=== PATIENT | male | born 1940 | race Two or more races ===

== ENCOUNTER 2022-01-06 17:24 | Inpatient (IN) | payer OTHER ==
[~2022-01-06] VITALS: Ht 172.7 cm; Wt 84.5 kg
[2022-01-06] MEDS ORDERED: IPRATROPIUM BROM 0.5 MG/2.5ML INH SOL HHN ONE (17:45)
[2022-01-06] MEDS ORDERED: ALBUTEROL SULF 2.5 MG/0.5ML(0.5%) NEB SOLN HHN ONE (17:45)
[2022-01-06] MEDS ORDERED: methylPREDNISolone SOD SUCC 125 MG/2 ML VL IV ONE (17:45)
[2022-01-06] MEDS ORDERED: ONDANSETRON HCL 4 MG/2 ML VIAL IV ONE (18:45)
[2022-01-06 19:23] LABS: Hematocrit 38.2 % (41.0-53.0); Mean Corpuscular Hgb Conc. 31.4 g/dL (32.0-36.0); Mean Corpuscular Volume 92.2 fL (80.0-100.0); Red Blood Cells 4.15 10^6/uL (4.5-5.90); Red Cell Distribution Width 15.1 % (11.8-14.3); White Blood Cell 12.7 10^3/uL (4.4-10.8)
[2022-01-06 19:41] LABS: Basophils % (manual) 0 (0.0-2.0); Blast Cells 0; Metamyelocytes % 0; Myelocytes % 0; Promyelocytes % 0; Reactive Lymphocytes 0
[2022-01-06 19:44] LABS: CRP High Sensitivity 0.77 mg/dL (< 0.3); Calcium 8.4 mg/dL (8.5-10.1); Potassium 4.6 mmol/L (3.5-5.1)
[2022-01-06 19:47] LABS: BUN/Creatinine Ratio 16.9; Bilirubin, Total 0.5 mg/dL (0.2-1.0); Total Protein 7.6 g/dL (6.4-8.2)
[2022-01-06 20:04] LABS: Band Neutrophils % (manual) 1; Eosinophils % (manual) 1 (0-7); Lymphocytes % (manual) 42 (10.0-50.0); Monocytes % (manual) 7 (0-12)
[2022-01-06] MEDS ORDERED: SODIUM CHLORIDE 0.9% 1,000 ML IV ONE (20:15)
[2022-01-06] MEDS ORDERED: IOHEXOL 350 MG/ML 100ML IJ ONE (21:15)
[2022-01-06] MEDS ORDERED: ACETAMINOPHEN 325 MG TAB PO PRN (22:15)
[2022-01-06] MEDS ORDERED: IPRATROPIUM BROM 0.5 MG/2.5ML INH SOL NEB PRN (22:15)
[2022-01-06] MEDS ORDERED: AZITHROMYCIN 500MG/ 250ML 250 ML IV ONE (22:15)
[2022-01-06] MEDS ORDERED: ALBUTEROL SULF 2.5 MG/0.5ML(0.5%) NEB SOLN NEB PRN (22:15)
[2022-01-06] MEDS ORDERED: MORPHINE SULFATE INJ 2 MG/ml SYRG IV PRN (22:15)
[2022-01-06] MEDS ORDERED: TEMAZEPAM 15 MG CAP PO PRN (22:15)
[2022-01-06] MEDS ORDERED: DEXTROSE (50%) 50ML SYRG IV PRN (22:15)
[2022-01-06] MEDS ORDERED: NITROGLYCERIN 0.4 MG SL TAB SL PRN (22:15)
[2022-01-06 22:46] VITALS: BP 94/43
[2022-01-07 06:25] LABS: Hematocrit 37.7 % (41.0-53.0); Hemoglobin 12.1 g/dL (13.5-17.5); Mean Corpuscular Hemoglobin 29.7 pg (28.0-32.0); Mean Corpuscular Hgb Conc. 32.2 g/dL (32.0-36.0); Mean Corpuscular Volume 92.3 fL (80.0-100.0); Red Blood Cells 4.09 10^6/uL (4.5-5.90); Red Cell Distribution Width 15.2 % (11.8-14.3); White Blood Cell 11.2 10^3/uL (4.4-10.8)
[2022-01-07 06:35] LABS: Potassium 5.3 mmol/L (3.5-5.1)
[2022-01-07 06:46] LABS: Albumin 2.8 g/dL (3.4-5.0); BUN/Creatinine Ratio 17.5; Bilirubin, Total 0.4 mg/dL (0.2-1.0); Calcium 8.5 mg/dL (8.5-10.1); Total Protein 7.2 g/dL (6.4-8.2)
[2022-01-07] MEDS: ACCU-CHEK COMFORT CURVE STRIP VI SCH ×4 (06:49→22:32)
[2022-01-07] MEDS: InsuLIN REG 1unit/0.01ml Soln (100units/ml) SC SCH ×4 (06:59→22:34)
[2022-01-07 07:19] LABS: Band Neutrophils % (manual) 0; Basophils % (manual) 0 (0.0-2.0); Blast Cells 0; Eosinophils % (manual) 0 (0-7); Metamyelocytes % 0; Myelocytes % 0; Promyelocytes % 0; Reactive Lymphocytes 0
[2022-01-07 09:18] LABS: Lymphocytes % (manual) 47 (10.0-50.0); Monocytes % (manual) 1 (0-12)
[2022-01-07] MEDS ORDERED: PANTOPRAZOLE 40 MG TAB PO SCH (10:00)
[2022-01-07] MEDS: AZITHROMYCIN 500MG/ 250ML 250 ML IV SCH (10:15)
[2022-01-07] MEDS: CARVEDILOL 3.125 MG TAB PO SCH ×2 (10:16→22:33)
[2022-01-07] MEDS: ENOXAPARIN SOD 40 MG/0.4 ML SYRINGE SC SCH (10:16)
[2022-01-07] MEDS: LISINOPRIL 5 MG TAB PO SCH (10:17)
[2022-01-07] MEDS ORDERED: FUROSEMIDE 20 MG/2 ML VIAL IV ONE (16:45)
[2022-01-07] MEDS ORDERED: REMDESIVIR PER PHARMACY 0 ML IV SCH (16:45)
[2022-01-07] MEDS: PIPERACILLIN-TAZOB 2.25GM 50 ML IV SCH (17:16)
[2022-01-07] MEDS ORDERED: REMDESIVIR 200 MG in NS 210ml LOADING DOSE ADULT IV ONE (17:30)
[2022-01-07 20:00] VITALS: BP 130/60
[2022-01-07 22:00] VITALS: BP 130/60
[2022-01-07] MEDS: ATORVASTATIN 20 MG TAB PO SCH (22:32)
[2022-01-08] MEDS ORDERED: guaiFENesin-DM 100/10mg/5ml SYR PO PRN (00:30)
[2022-01-08] MEDS: PIPERACILLIN-TAZOB 2.25GM 50 ML IV SCH ×5 (00:56→23:38)
[2022-01-08 05:00] VITALS: BP 110/56
[2022-01-08] MEDS: InsuLIN REG 1unit/0.01ml Soln (100units/ml) SC SCH ×4 (06:23→22:22)
[2022-01-08] MEDS: ACCU-CHEK COMFORT CURVE STRIP VI SCH ×4 (06:23→22:09)
[2022-01-08 07:05] LABS: Albumin 2.7 g/dL (3.4-5.0); Calcium 8.2 mg/dL (8.5-10.1); Potassium 4.9 mmol/L (3.5-5.1)
[2022-01-08 07:10] LABS: BUN/Creatinine Ratio 24.7; Bilirubin, Total 0.5 mg/dL (0.2-1.0); Total Protein 6.5 g/dL (6.4-8.2)
[2022-01-08 08:00] VITALS: BP 109/67
[2022-01-08] MEDS: DexAMETHasone SOD PHOS 10MG/1ML VIAL INJ IV SCH ×2 (10:00→11:43)
[2022-01-08] MEDS: AZITHROMYCIN 500MG/ 250ML 250 ML IV SCH (11:43)
[2022-01-08] MEDS: ENOXAPARIN SOD 40 MG/0.4 ML SYRINGE SC SCH (11:44)
[2022-01-08] MEDS: FUROSEMIDE 20 MG/2 ML VIAL IV SCH (12:12)
[2022-01-08] MEDS: LISINOPRIL 5 MG TAB PO SCH (12:13)
[2022-01-08] MEDS: CARVEDILOL 3.125 MG TAB PO SCH ×2 (12:13→22:08)
[2022-01-08 13:00] VITALS: BP 100/70
[2022-01-08] MEDS: ONDANSETRON HCL 4 MG/2 ML VIAL IV PRN (14:36)
[2022-01-08] MEDS ORDERED: REMDESIVIR 100mg 100 MG in SODIUM CHL 0.9% 230 ML IV SCH (15:00)
[2022-01-08 16:47] VITALS: BP 127/64
[2022-01-08 20:00] VITALS: BP 106/59
[2022-01-08 22:00] VITALS: BP 106/59
[2022-01-08] MEDS: ATORVASTATIN 20 MG TAB PO SCH (22:08)
[2022-01-09 05:00] VITALS: BP 96/48
[2022-01-09] MEDS: ONDANSETRON HCL 4 MG/2 ML VIAL IV PRN (05:17)
[2022-01-09] MEDS: ACCU-CHEK COMFORT CURVE STRIP VI SCH ×4 (05:43→22:27)
[2022-01-09] MEDS: PIPERACILLIN-TAZOB 2.25GM 50 ML IV SCH ×3 (05:43→17:47)
[2022-01-09 06:03] LABS: Mean Corpuscular Hemoglobin 29.6 pg (28.0-32.0); Mean Corpuscular Hgb Conc. 32.3 g/dL (32.0-36.0); Mean Corpuscular Volume 91.4 fL (80.0-100.0); Red Blood Cells 4.04 10^6/uL (4.5-5.90); Red Cell Distribution Width 15.4 % (11.8-14.3); White Blood Cell 13.5 10^3/uL (4.4-10.8)
[2022-01-09 06:13] LABS: Basophils % (manual) 0 (0.0-2.0); Blast Cells 0; Metamyelocytes % 0; Myelocytes % 0; Promyelocytes % 0; Reactive Lymphocytes 0
[2022-01-09 07:13] LABS: Band Neutrophils % (manual) 10; Eosinophils % (manual) 2 (0-7); Lymphocytes % (manual) 48 (10.0-50.0); Monocytes % (manual) 11 (0-12)
[2022-01-09] MEDS: InsuLIN REG 1unit/0.01ml Soln (100units/ml) SC SCH ×4 (07:27→22:46)
[2022-01-09 07:45] VITALS: BP 109/64
[2022-01-09 08:00] VITALS: BP 101/51
[2022-01-09] MEDS: ENOXAPARIN SOD 40 MG/0.4 ML SYRINGE SC SCH (10:52)
[2022-01-09] MEDS: CARVEDILOL 3.125 MG TAB PO SCH ×2 (10:53→22:26)
[2022-01-09] MEDS: FUROSEMIDE 20 MG/2 ML VIAL IV SCH (10:54)
[2022-01-09] MEDS: LISINOPRIL 5 MG TAB PO SCH (10:54)
[2022-01-09] MEDS ORDERED: predniSONE 20 MG TAB PO ONE (11:15)
[2022-01-09 12:07] LABS: Hematocrit 37.4 % (41.0-53.0); Hemoglobin 11.9 g/dL (13.5-17.5); Mean Corpuscular Hemoglobin 29.1 pg (28.0-32.0); Mean Corpuscular Hgb Conc. 31.9 g/dL (32.0-36.0); Mean Corpuscular Volume 91.4 fL (80.0-100.0); Red Blood Cells 4.09 10^6/uL (4.5-5.90); Red Cell Distribution Width 15.3 % (11.8-14.3); White Blood Cell 13.7 10^3/uL (4.4-10.8)
[2022-01-09 12:25] LABS: Basophils % (manual) 0 (0.0-2.0); Blast Cells 0; Eosinophils % (manual) 0 (0-7); Myelocytes % 0; Promyelocytes % 0
[2022-01-09 12:43] LABS: BUN/Creatinine Ratio 23.3; Calcium 8.1 mg/dL (8.5-10.1); Potassium 4.8 mmol/L (3.5-5.1)
[2022-01-09 12:46] LABS: Band Neutrophils % (manual) 8; Lymphocytes % (manual) 49 (10.0-50.0); Metamyelocytes % 1; Monocytes % (manual) 6 (0-12); Reactive Lymphocytes 3
[2022-01-09 13:00] VITALS: BP 109/64
[2022-01-09] MEDS: REMDESIVIR 100mg 100 MG in SODIUM CHL 0.9% 230 ML IV SCH (16:12)
[2022-01-09] MEDS ORDERED: CEFP200T15 PO (17:19)
[2022-01-09] MEDS ORDERED: LISI-275 PO (17:19)
[2022-01-09] MEDS ORDERED: GAB100C PO (17:19)
[2022-01-09] MEDS ORDERED: AZIT250T9 PO (17:19)
[2022-01-09] MEDS ORDERED: ALBU0.084 NEB (17:19)
[2022-01-09] MEDS ORDERED: CARV3.1240 PO (17:19)
[2022-01-09 17:23] VITALS: BP 122/57
[2022-01-09 20:00] VITALS: BP 123/62
[2022-01-09] MEDS: ATORVASTATIN 20 MG TAB PO SCH (22:27)
[2022-01-10] VITALS (8 sets, daily range): BP systolic 91–142; BP diastolic 41–62
[2022-01-10] MEDS: PIPERACILLIN-TAZOB 2.25GM 50 ML IV SCH ×4 (01:22→17:42)
[2022-01-10 05:01] LABS: Hematocrit 36.2 % (41.0-53.0); Hemoglobin 11.8 g/dL (13.5-17.5); Mean Corpuscular Hemoglobin 29.4 pg (28.0-32.0); Mean Corpuscular Hgb Conc. 32.6 g/dL (32.0-36.0); Mean Corpuscular Volume 90.2 fL (80.0-100.0); Red Blood Cells 4.01 10^6/uL (4.5-5.90); White Blood Cell 15.3 10^3/uL (4.4-10.8)
[2022-01-10 05:32] LABS: Potassium 4.8 mmol/L (3.5-5.1)
[2022-01-10 05:38] LABS: Calcium 8.1 mg/dL (8.5-10.1)
[2022-01-10 05:40] LABS: Basophils % (manual) 0 (0.0-2.0); Blast Cells 0; Eosinophils % (manual) 0 (0-7); Metamyelocytes % 0; Myelocytes % 0; Promyelocytes % 0
[2022-01-10] MEDS: ACCU-CHEK COMFORT CURVE STRIP VI SCH ×3 (06:40→17:43)
[2022-01-10] MEDS: InsuLIN REG 1unit/0.01ml Soln (100units/ml) SC SCH ×3 (06:46→17:49)
[2022-01-10 07:20] LABS: Band Neutrophils % (manual) 11; Lymphocytes % (manual) 39 (10.0-50.0); Monocytes % (manual) 9 (0-12); Reactive Lymphocytes 7
[2022-01-10] MEDS ORDERED: predniSONE 20 MG TAB PO SCH (10:00)
[2022-01-10] MEDS: ENOXAPARIN SOD 40 MG/0.4 ML SYRINGE SC SCH (10:18)
[2022-01-10] MEDS: LISINOPRIL 5 MG TAB PO SCH (10:18)
[2022-01-10] MEDS: CARVEDILOL 3.125 MG TAB PO SCH (10:18)
[2022-01-10] MEDS: REMDESIVIR 100mg 100 MG in SODIUM CHL 0.9% 230 ML IV SCH (16:40)
== END 2022-01-10 21:06 | disposition short-term general hospital (02) | DRG 871 ==
LOC: EDBD 17:24 → ER 17:24 → TELE 22:09 → TELE-WESTW 01-07 15:09
PROVIDERS: ADMIT Nurse Practitioner; ATTEND Internal Medicine Nephrology
PROC: XW033E5 Introduction of Remdesivir Anti-infective into Peripheral Vein, Percutaneous Approach, New Technology Group 5 (ICD-10-PCS; principal; 2022-01-07)
DX: A41.89 Other specified sepsis (principal); J12.82 Pneumonia due to coronavirus disease 2019; U07.1 COVID-19; J96.21 Acute and chronic respiratory failure with hypoxia; J90 Pleural effusion, not elsewhere classified; C34.90 Malignant neoplasm of unspecified part of unspecified bronchus or lung; N17.9 Acute kidney failure, unspecified; R65.20 Severe sepsis without septic shock; E66.9 Obesity, unspecified; Z68.28 Body mass index [BMI] 28.0-28.9, adult; R79.89 Other specified abnormal findings of blood chemistry; Z20.822 Contact with and (suspected) exposure to COVID-19; D69.6 Thrombocytopenia, unspecified; E11.22 Type 2 diabetes mellitus with diabetic chronic kidney disease; E87.5 Hyperkalemia; N18.32 Chronic kidney disease, stage 3b; Z85.118 Personal history of other malignant neoplasm of bronchus and lung; Z87.891 Personal history of nicotine dependence; Z95.1 Presence of aortocoronary bypass graft
CPT/HCPCS: 36415; 36600; 71045; 71275; 76604; 80048; 80053; 82728; 82805; 82962; 83605; 83880; 84484; 85007; 85027; 85379; 86141; 87040; 94640; 96361; 96365; 96366; 96372; 96375; G0378; J1100; J1815; J2405; J2543

== ENCOUNTER 2022-04-20 09:31 | Inpatient (IN) | payer OTHER ==
[~2022-04-20] VITALS: Ht 177.8 cm; Wt 82.9 kg
[~2022-04-20 09:31] MED LIST: ALBU0.084 NEB; AZIT250T9 PO; CARV3.1240 PO; CEFP200T15 PO; GAB100C PO; LISI-275 PO
[2022-04-20] MEDS ORDERED: IOHEXOL 350 MG/ML 100ML IJ ONE (10:05)
[2022-04-20 10:24] LABS: Hematocrit 39.5 % (41.0-53.0); Hemoglobin 13.1 g/dL (13.5-17.5); Mean Corpuscular Hemoglobin 31.1 pg (28.0-32.0); Mean Corpuscular Hgb Conc. 33.2 g/dL (32.0-36.0); Mean Corpuscular Volume 93.5 fL (80.0-100.0); Red Blood Cells 4.22 10^6/uL (4.5-5.90); Red Cell Distribution Width 14.7 % (11.8-14.3); White Blood Cell 18.1 10^3/uL (4.4-10.8)
[2022-04-20 10:29] LABS: Basophils % (manual) 0 (0.0-2.0); Blast Cells 0; Metamyelocytes % 0; Myelocytes % 0; Promyelocytes % 0; Reactive Lymphocytes 0
[2022-04-20 10:41] LABS: INR 1.03 (0.9-1.15); Partial Thromboplastin Time 28.4 sec (24.6-33.4)
[2022-04-20 10:44] LABS: Magnesium 2.4 mg/dL (1.6-2.6)
[2022-04-20 10:48] LABS: Albumin 3.2 g/dL (3.4-5.0); BUN/Creatinine Ratio 20.5; Calcium 8.4 mg/dL (8.5-10.1); Potassium 4.4 mmol/L (3.5-5.1)
[2022-04-20 11:10] LABS: Bilirubin, Total 0.5 mg/dL (0.2-1.0); Total Protein 7.3 g/dL (6.4-8.2)
[2022-04-20 11:32] LABS: Band Neutrophils % (manual) 2; Eosinophils % (manual) 2 (0-7); Lymphocytes % (manual) 56 (10.0-50.0); Monocytes % (manual) 4 (0-12)
[2022-04-20] MEDS ORDERED: ALBUTEROL SULF 2.5 MG/0.5ML(0.5%) NEB SOLN NEB ONE (13:00)
[2022-04-20] MEDS ORDERED: CEFEPIME 1GM/ 50ML 50 ML IV ONE (13:00)
[2022-04-20] MEDS ORDERED: IPRATROPIUM BROM 0.5 MG/2.5ML INH SOL NEB ONE (13:00)
[2022-04-20] MEDS ORDERED: MAGNESIUM SULFATE 1GM/100ML 100 ML IV ONE (13:00)
[2022-04-20] MEDS ORDERED: VANCOMYCIN 1GM/250ML 250 ML IV ONE (13:00)
[2022-04-20] MEDS ORDERED: DexAMETHasone SOD PHOS 10MG/1ML VIAL INJ IV ONE (13:00)
[2022-04-20] MEDS ORDERED: ONDANSETRON HCL 4 MG/2 ML VIAL IV ONE (13:45)
[2022-04-20] MEDS ORDERED: MORPHINE SULFATE INJ 2 MG/ml SYRG IV ONE (13:45)
[2022-04-20] MEDS ORDERED: LORazepam 0.5 MG TAB PO ONE (14:00)
[2022-04-20] MEDS ORDERED: SODIUM CHLORIDE 0.9% 1,000 ML IV ONE (14:15)
[2022-04-20] MEDS ORDERED: ONDANSETRON HCL 4 MG/2 ML VIAL IV PRN (15:30)
[2022-04-20] MEDS ORDERED: NITROGLYCERIN 0.4 MG SL TAB SL PRN (15:30)
[2022-04-20] MEDS ORDERED: MORPHINE SULFATE INJ 2 MG/ml SYRG IV PRN (15:30)
[2022-04-20] MEDS ORDERED: DOCUSATE SOD 100 MG CAP PO PRN (15:30)
[2022-04-20 16:36] LABS: Urine Bacteria NONE SEEN /hpf (None Seen); Urine Blood Negative /uL (Negative); Urine WBC 5 /hpf (0 - 3)
[2022-04-20] MEDS ORDERED: DEXTROSE (50%) 50ML SYRG IV PRN (18:30)
[2022-04-20] MEDS ORDERED: ALPRAZolam 0.5 MG TAB PO PRN (18:30)
[2022-04-20] MEDS: IPRATROPIUM BROM 0.5 MG/2.5ML INH SOL NEB SCH (18:41)
[2022-04-20] MEDS: ALBUTEROL SULF 2.5 MG/0.5ML(0.5%) NEB SOLN NEB SCH (18:41)
[2022-04-20 20:24] VITALS: BP 99/49
[2022-04-20] MEDS: ACCU-CHEK COMFORT CURVE STRIP VI SCH (22:00)
[2022-04-20] MEDS: InsuLIN REG 1unit/0.01ml Soln (100units/ml) SC SCH (22:00)
[2022-04-21] MEDS: HYDROcodone-ACET 5/325MG TAB PO PRN ×2 (02:39→10:23)
[2022-04-21] MEDS ORDERED: CEFEPIME 1GM/ 50ML 50 ML IV ONE (02:59)
[2022-04-21] MEDS: CEFEPIME 1GM/ 50ML 50 ML IV SCH ×2 (03:01→15:11)
[2022-04-21] MEDS: IPRATROPIUM BROM 0.5 MG/2.5ML INH SOL NEB SCH ×3 (06:00→18:20)
[2022-04-21] MEDS: ALBUTEROL SULF 2.5 MG/0.5ML(0.5%) NEB SOLN NEB SCH ×3 (06:00→18:20)
[2022-04-21 06:48] LABS: Hematocrit 38.6 % (41.0-53.0); Hemoglobin 12.4 g/dL (13.5-17.5); Mean Corpuscular Hgb Conc. 32.2 g/dL (32.0-36.0); Mean Corpuscular Volume 93.1 fL (80.0-100.0); Red Blood Cells 4.14 10^6/uL (4.5-5.90); Red Cell Distribution Width 15.1 % (11.8-14.3); White Blood Cell 29.7 10^3/uL (4.4-10.8)
[2022-04-21] MEDS: ACCU-CHEK COMFORT CURVE STRIP VI SCH ×4 (07:08→23:13)
[2022-04-21] MEDS: InsuLIN REG 1unit/0.01ml Soln (100units/ml) SC SCH ×4 (07:08→23:14)
[2022-04-21 07:09] LABS: Basophils % (manual) 0 (0.0-2.0); Blast Cells 0; Eosinophils % (manual) 0 (0-7); Metamyelocytes % 0; Myelocytes % 0; Promyelocytes % 0
[2022-04-21 07:13] LABS: Albumin 2.8 g/dL (3.4-5.0); Magnesium 2.8 mg/dL (1.6-2.6); Potassium 5.4 mmol/L (3.5-5.1)
[2022-04-21 07:17] LABS: BUN/Creatinine Ratio 23.3; Bilirubin, Total 0.4 mg/dL (0.2-1.0); Total Protein 6.8 g/dL (6.4-8.2)
[2022-04-21 08:09] LABS: Band Neutrophils % (manual) 3; Lymphocytes % (manual) 39 (10.0-50.0); Monocytes % (manual) 2 (0-12); Reactive Lymphocytes 2
[2022-04-21] MEDS: PANTOPRAZOLE 40 MG/10 ML VIAL INJ IV SCH (10:08)
[2022-04-21] MEDS: AZITHROMYCIN 500MG/ 250ML 250 ML IV SCH (10:08)
[2022-04-21] MEDS ORDERED: INSULIN 70/30 1unit/0.01ml Susp (100units/ml) SC ONE (12:45)
[2022-04-21] MEDS ORDERED: SODIUM ZIRCONIUM CYCL 10 GM PAK PO ONE (12:45)
[2022-04-21] MEDS ORDERED: SODIUM CHLORIDE 0.9% 1,000 ML IV SCH (12:45)
[2022-04-21] MEDS: DexAMETHasone SOD PHOS 4 MG/1ML SDV INJ IV SCH (13:32)
[2022-04-21] MEDS: INSULIN 70/30 1unit/0.01ml Susp (100units/ml) SC SCH (18:00)
[2022-04-21] MEDS ORDERED: methylPREDNISolone SOD SUCC 40 MG/ML VL IV SCH (22:00)
[2022-04-21 22:45] VITALS: BP 125/57
[2022-04-21 23:45] VITALS: BP 119/52
[2022-04-22] VITALS (25 sets, daily range): BP systolic 110–151; BP diastolic 40–92
[2022-04-22] MEDS: CEFEPIME 1GM/ 50ML 50 ML IV SCH ×2 (03:04→15:00)
[2022-04-22 04:03] LABS: Hematocrit 35.5 % (41.0-53.0); Hemoglobin 11.7 g/dL (13.5-17.5); Mean Corpuscular Hemoglobin 30.7 pg (28.0-32.0); Mean Corpuscular Hgb Conc. 33.1 g/dL (32.0-36.0); Mean Corpuscular Volume 92.8 fL (80.0-100.0); Red Blood Cells 3.83 10^6/uL (4.5-5.90); Red Cell Distribution Width 15.2 % (11.8-14.3)
[2022-04-22 04:22] LABS: BUN/Creatinine Ratio 26.8; Calcium 8.4 mg/dL (8.5-10.1); Potassium 4.9 mmol/L (3.5-5.1)
[2022-04-22 05:05] LABS: Basophils % (manual) 0 (0.0-2.0); Blast Cells 0; Eosinophils % (manual) 0 (0-7); Metamyelocytes % 0; Myelocytes % 0; Promyelocytes % 0; White Blood Cell 30.2 10^3/uL (4.4-10.8)
[2022-04-22] MEDS: ALBUTEROL SULF 2.5 MG/0.5ML(0.5%) NEB SOLN NEB SCH ×3 (06:26→19:44)
[2022-04-22] MEDS: IPRATROPIUM BROM 0.5 MG/2.5ML INH SOL NEB SCH ×3 (06:26→19:44)
[2022-04-22 06:29] LABS: Band Neutrophils % (manual) 3; Lymphocytes % (manual) 41 (10.0-50.0); Monocytes % (manual) 3 (0-12); Reactive Lymphocytes 2
[2022-04-22] MEDS: ACCU-CHEK COMFORT CURVE STRIP VI SCH ×4 (06:48→21:31)
[2022-04-22] MEDS: InsuLIN REG 1unit/0.01ml Soln (100units/ml) SC SCH ×4 (06:56→21:34)
[2022-04-22] MEDS: HYDROcodone-ACET 5/325MG TAB PO PRN (08:12)
[2022-04-22] MEDS: INSULIN 70/30 1unit/0.01ml Susp (100units/ml) SC SCH ×2 (08:24→18:00)
[2022-04-22] MEDS: DexAMETHasone SOD PHOS 4 MG/1ML SDV INJ IV SCH (09:45)
[2022-04-22] MEDS: AZITHROMYCIN 500MG/ 250ML 250 ML IV SCH (09:45)
[2022-04-22] MEDS: PANTOPRAZOLE 40 MG/10 ML VIAL INJ IV SCH (09:45)
[2022-04-23] VITALS (21 sets, daily range): BP systolic 125–166; BP diastolic 48–73
[2022-04-23] MEDS: ACETAMINOPHEN 325 MG TAB PO PRN ×2 (00:08→10:28)
[2022-04-23] MEDS: CEFEPIME 1GM/ 50ML 50 ML IV SCH ×2 (03:00→15:00)
[2022-04-23 06:21] LABS: Hematocrit 36.8 % (41.0-53.0); Hemoglobin 11.8 g/dL (13.5-17.5); Mean Corpuscular Hemoglobin 29.9 pg (28.0-32.0); Mean Corpuscular Hgb Conc. 32.2 g/dL (32.0-36.0); Mean Corpuscular Volume 92.7 fL (80.0-100.0); Red Blood Cells 3.96 10^6/uL (4.5-5.90); Red Cell Distribution Width 14.8 % (11.8-14.3); White Blood Cell 25.8 10^3/uL (4.4-10.8)
[2022-04-23 06:26] LABS: Basophils % (manual) 0 (0.0-2.0); Blast Cells 0; Eosinophils % (manual) 0 (0-7); Metamyelocytes % 0; Myelocytes % 0; Promyelocytes % 0; Reactive Lymphocytes 0
[2022-04-23] MEDS: InsuLIN REG 1unit/0.01ml Soln (100units/ml) SC SCH ×4 (06:55→21:42)
[2022-04-23] MEDS: ACCU-CHEK COMFORT CURVE STRIP VI SCH ×4 (06:56→21:42)
[2022-04-23 07:12] LABS: BUN/Creatinine Ratio 32.2; Calcium 8.2 mg/dL (8.5-10.1); Potassium 4.5 mmol/L (3.5-5.1)
[2022-04-23] MEDS: INSULIN 70/30 1unit/0.01ml Susp (100units/ml) SC SCH ×2 (08:20→18:00)
[2022-04-23] MEDS: IPRATROPIUM BROM 0.5 MG/2.5ML INH SOL NEB SCH ×3 (09:44→18:39)
[2022-04-23] MEDS: ALBUTEROL SULF 2.5 MG/0.5ML(0.5%) NEB SOLN NEB SCH ×3 (09:44→18:39)
[2022-04-23 09:49] LABS: Band Neutrophils % (manual) 6; Lymphocytes % (manual) 62 (10.0-50.0); Monocytes % (manual) 2 (0-12)
[2022-04-23] MEDS: DexAMETHasone SOD PHOS 4 MG/1ML SDV INJ IV SCH (10:26)
[2022-04-23] MEDS: PANTOPRAZOLE 40 MG/10 ML VIAL INJ IV SCH (10:26)
[2022-04-23] MEDS: AZITHROMYCIN 500MG/ 250ML 250 ML IV SCH (10:26)
[2022-04-24] VITALS (21 sets, daily range): BP systolic 110–164; BP diastolic 32–72
[2022-04-24] MEDS: HYDROcodone-ACET 5/325MG TAB PO PRN ×2 (02:01→20:45)
[2022-04-24] MEDS: CEFEPIME 1GM/ 50ML 50 ML IV SCH ×2 (03:01→15:58)
[2022-04-24] MEDS: ACCU-CHEK COMFORT CURVE STRIP VI SCH ×4 (06:56→22:33)
[2022-04-24] MEDS: InsuLIN REG 1unit/0.01ml Soln (100units/ml) SC SCH ×4 (07:00→22:36)
[2022-04-24] MEDS: IPRATROPIUM BROM 0.5 MG/2.5ML INH SOL NEB SCH ×3 (07:05→18:11)
[2022-04-24] MEDS: ALBUTEROL SULF 2.5 MG/0.5ML(0.5%) NEB SOLN NEB SCH ×3 (07:05→18:11)
[2022-04-24] MEDS: PANTOPRAZOLE 40 MG TAB PO SCH (09:21)
[2022-04-24] MEDS: DexAMETHasone 4 MG TAB PO SCH (09:21)
[2022-04-24] MEDS: AZITHROMYCIN 500MG/ 250ML 250 ML IV SCH (09:21)
[2022-04-24] MEDS: INSULIN 70/30 1unit/0.01ml Susp (100units/ml) SC SCH ×2 (09:24→18:11)
[2022-04-25] VITALS: BP 153/64
[2022-04-25 03:00] VITALS: BP 133/52
[2022-04-25] MEDS: CEFEPIME 1GM/ 50ML 50 ML IV SCH ×2 (03:00→14:31)
[2022-04-25 04:45] LABS: Hematocrit 38.1 % (41.0-53.0); Hemoglobin 12.6 g/dL (13.5-17.5); Mean Corpuscular Hemoglobin 30.3 pg (28.0-32.0); Mean Corpuscular Hgb Conc. 33.1 g/dL (32.0-36.0); Mean Corpuscular Volume 91.4 fL (80.0-100.0); Red Blood Cells 4.16 10^6/uL (4.5-5.90)
[2022-04-25 04:50] LABS: White Blood Cell 35.9 10^3/uL (4.4-10.8)
[2022-04-25 04:52] LABS: Band Neutrophils % (manual) 0; Basophils % (manual) 0 (0.0-2.0); Blast Cells 0; Eosinophils % (manual) 0 (0-7); Metamyelocytes % 0; Myelocytes % 0; Promyelocytes % 0; Reactive Lymphocytes 0
[2022-04-25 05:01] LABS: BUN/Creatinine Ratio 33.3; Calcium 8.3 mg/dL (8.5-10.1); Potassium 4.4 mmol/L (3.5-5.1)
[2022-04-25] MEDS: ALBUTEROL SULF 2.5 MG/0.5ML(0.5%) NEB SOLN NEB SCH ×3 (05:59→18:26)
[2022-04-25] MEDS: IPRATROPIUM BROM 0.5 MG/2.5ML INH SOL NEB SCH ×3 (05:59→18:26)
[2022-04-25 06:08] LABS: Lymphocytes % (manual) 61 (10.0-50.0); Monocytes % (manual) 5 (0-12)
[2022-04-25] MEDS: ACCU-CHEK COMFORT CURVE STRIP VI SCH ×4 (06:55→22:00)
[2022-04-25] MEDS: InsuLIN REG 1unit/0.01ml Soln (100units/ml) SC SCH ×4 (06:57→22:00)
[2022-04-25 08:00] VITALS: BP 113/38
[2022-04-25] MEDS: INSULIN 70/30 1unit/0.01ml Susp (100units/ml) SC SCH ×2 (09:11→17:10)
[2022-04-25] MEDS: AZITHROMYCIN 500MG/ 250ML 250 ML IV SCH (09:34)
[2022-04-25] MEDS: PANTOPRAZOLE 40 MG TAB PO SCH (09:34)
[2022-04-25] MEDS: DexAMETHasone 4 MG TAB PO SCH (09:35)
[2022-04-25] MEDS: HYDROcodone-ACET 5/325MG TAB PO PRN ×2 (10:36→20:30)
[2022-04-25 12:00] VITALS: BP 132/57
[2022-04-25 16:00] VITALS: BP 141/63
[2022-04-25 20:00] VITALS: BP 130/67
[2022-04-26] VITALS (7 sets, daily range): BP systolic 124–155; BP diastolic 47–69
[2022-04-26] MEDS: CEFEPIME 1GM/ 50ML 50 ML IV SCH ×2 (04:08→15:40)
[2022-04-26 04:59] LABS: Hematocrit 38.5 % (41.0-53.0); Hemoglobin 12.6 g/dL (13.5-17.5); Mean Corpuscular Hgb Conc. 32.6 g/dL (32.0-36.0); Mean Corpuscular Volume 92.1 fL (80.0-100.0); Red Blood Cells 4.19 10^6/uL (4.5-5.90); Red Cell Distribution Width 14.7 % (11.8-14.3)
[2022-04-26 05:03] LABS: White Blood Cell 46.7 10^3/uL (4.4-10.8)
[2022-04-26 05:05] LABS: Band Neutrophils % (manual) 0; Basophils % (manual) 0 (0.0-2.0); Blast Cells 0; Eosinophils % (manual) 0 (0-7); Metamyelocytes % 0; Myelocytes % 0; Promyelocytes % 0; Reactive Lymphocytes 0
[2022-04-26 05:11] LABS: Lymphocytes % (manual) 73 (10.0-50.0); Monocytes % (manual) 3 (0-12)
[2022-04-26 05:18] LABS: BUN/Creatinine Ratio 31.3; Calcium 8.4 mg/dL (8.5-10.1)
[2022-04-26] MEDS: ALBUTEROL SULF 2.5 MG/0.5ML(0.5%) NEB SOLN NEB SCH ×3 (06:31→18:49)
[2022-04-26] MEDS: IPRATROPIUM BROM 0.5 MG/2.5ML INH SOL NEB SCH ×2 (06:31→18:48)
[2022-04-26] MEDS: InsuLIN REG 1unit/0.01ml Soln (100units/ml) SC SCH ×4 (07:00→21:19)
[2022-04-26] MEDS: ACCU-CHEK COMFORT CURVE STRIP VI SCH ×4 (07:00→21:30)
[2022-04-26] MEDS: AZITHROMYCIN 500MG/ 250ML 250 ML IV SCH (09:31)
[2022-04-26] MEDS: PANTOPRAZOLE 40 MG TAB PO SCH (09:31)
[2022-04-26] MEDS: DexAMETHasone 4 MG TAB PO SCH (09:31)
[2022-04-26] MEDS: HYDROcodone-ACET 5/325MG TAB PO PRN (09:42)
[2022-04-26] MEDS: INSULIN 70/30 1unit/0.01ml Susp (100units/ml) SC SCH ×2 (09:51→17:37)
[2022-04-27 02:32] VITALS: BP 161/69
== END 2022-04-27 03:59 | disposition short-term general hospital (02) | DRG 871 ==
LOC: ER 09:31 → EDBD 09:31 → TELE 15:34 → DOU IN ICU 04-21 21:00
PROVIDERS: ADMIT Nurse Practitioner Family; ATTEND Internal Medicine Pulmonary Disease
PROC: 5A09357 Assistance with Respiratory Ventilation, Less than 24 Consecutive Hours, Continuous Positive Airway Pressure (ICD-10-PCS; principal; 2022-04-20)
DX: A41.9 Sepsis, unspecified organism (principal); I50.41 Acute combined systolic (congestive) and diastolic (congestive) heart failure; J18.9 Pneumonia, unspecified organism; J96.20 Acute and chronic respiratory failure, unspecified whether with hypoxia or hypercapnia; N17.0 Acute kidney failure with tubular necrosis; J44.1 Chronic obstructive pulmonary disease with (acute) exacerbation; I13.0 Hypertensive heart and chronic kidney disease with heart failure and stage 1 through stage 4 chronic kidney disease, or unspecified chronic kidney disease; J44.0 Chronic obstructive pulmonary disease with (acute) lower respiratory infection; C34.90 Malignant neoplasm of unspecified part of unspecified bronchus or lung; E87.5 Hyperkalemia; C80.1 Malignant (primary) neoplasm, unspecified; Z20.822 Contact with and (suspected) exposure to COVID-19; E78.5 Hyperlipidemia, unspecified; I25.10 Atherosclerotic heart disease of native coronary artery without angina pectoris; N18.9 Chronic kidney disease, unspecified; D69.6 Thrombocytopenia, unspecified; E11.22 Type 2 diabetes mellitus with diabetic chronic kidney disease; E87.6 Hypokalemia; Z79.899 Other long term (current) drug therapy; Z85.118 Personal history of other malignant neoplasm of bronchus and lung; Z95.1 Presence of aortocoronary bypass graft
CPT/HCPCS: 36415; 71045; 71275; 80048; 80053; 81001; 82962; 83036; 83605; 83690; 83735; 83880; 84484; 85007; 85027; 85610; 85730; 87040; 87081; 87426; 93005; 93306; 94640; 94660; 96365; 96368; 99291; C9113; G0378; J1100; J1815; J2405